=== PATIENT | female | born 1975 | race Two or more races ===

== ENCOUNTER 2016-12-10 14:57 | Emergency (ER) | payer OTHER ==
[~2016-12-10] VITALS: Ht 157.5 cm; Wt 135.0 kg
[2016-12-10 16:58] LABS: BASO % 0.6 % (0.0-1.0); LARGE UNSTAINED CELL # 0.1 K/mm3 (0.0-0.4); LARGE UNSTAINED CELL % 2.1 % (0.0-4.0); LYMPH # 1.8 K/mm3 (1.5-4.5); LYMPH % 35.7 % (24.0-44.0); MEAN CORPUSCULAR HEMOGLOBIN 24.5 pg (27.0-33.0); MEAN CORPUSCULAR HGB CONC 31.3 g/dl (32.0-36.5); MEAN CORPUSCULAR VOLUME 78.2 fl (80.0-96.0); MONO # 0.2 K/mm3 (0.0-0.8); MONO % 4.7 % (0.0-5.0); NEUTROPHILS # 2.7 K/mm3 (1.8-7.7); NEUTROPHILS % 55.9 % (36.0-66.0); PLATELET COUNT, AUTOMATED 443 k/mm3 (150-450); RED CELL DISTRIBUTION WIDTH 17.5 % (11.5-14.5); WHITE BLOOD COUNT 4.9 K/mm3 (4.0-10.0)
--- NOTE | 2016-12-10 17:52 | REP ---
Pelvic sonography: History: Dysfunctional uterine bleeding. Findings: Transabdominal and transvaginal scanning are performed. Uterine dimensions are normal 8.8 x 3.8 x 4.8 cm. Endometrial echo 0.4 cm thick. There is a large heterogeneously solid avascular lesion dilating the cervical canal and measuring 3.1 x 1.3 x 2.3 cm. This is consistent with an endocervical thrombus or polyp. No focal uterine mass seen. No free fluid is seen. Normal ovaries are seen bilaterally. The right ovary measures 2.8 x 1.8 x 2.1 cm. Left ovary dimensions are 2.5 x 1.2 x 2.3 cm. Impression: 3.1 x 1.3 x 2.3 cm avascular echogenic structure dilating the endocervical canal, thrombus versus less likely polyp. Otherwise negative pelvic sonography. Signed by Connor Renee MD 12/11/2016 08:32 A
[2016-12-10] MEDS ORDERED: LOES1TAB9 PO (18:10)
[2016-12-10 18:18] VITALS: BP 124/87
== END 2016-12-10 18:35 | disposition home or self-care (01) ==
LOC: M ED 14:57
DX: N93.8 Other specified abnormal uterine and vaginal bleeding (principal); N88.8 Other specified noninflammatory disorders of cervix uteri; D64.9 Anemia, unspecified; Z79.899 Other long term (current) drug therapy

== ENCOUNTER → 2018-07-13 | Outpatient (REF) | payer OTHER ==
[~2018-07-13] MED LIST: LOES1TAB9 PO
[2018-07-15 14:18] LABS: HPV HYBRID CAPTURE II Negative (Negative)
== END ==
LOC: M LAB REF 17:16
PROVIDERS: ATTEND Advanced Practice Midwife
DX: Z12.4 Encounter for screening for malignant neoplasm of cervix (principal)
CPT/HCPCS: 87624; G0123

== ENCOUNTER → 2018-07-27 | Outpatient (CLI) | payer OTHER ==
[2018-07-27 18:24] LABS: BASO % 0.2 % (0.0-1.0); EOS # 0.2 10^3/uL (0.0-0.50); EOS % 2.9 % (0.0-3.0); HEMOGLOBIN 11.9 g/dl (12.0-15.5); LYMPH # 1.8 10^3/uL (1.5-4.5); LYMPH % 33.6 % (24.0-44.0); MEAN CORPUSCULAR HEMOGLOBIN 30.1 pg (27.0-33.0); MEAN CORPUSCULAR HGB CONC 33.1 g/dl (32.0-36.5); MEAN CORPUSCULAR VOLUME 90.9 fl (80.0-96.0); MONO # 0.3 10^3/uL (0.0-0.8); MONO % 5.8 % (0.0-5.0); NEUTROPHILS % 57.3 % (36.0-66.0); PLATELET COUNT, AUTOMATED 325 10^3/uL (150-450); RED BLOOD COUNT 3.96 10^6/uL (4.00-5.40); WHITE BLOOD COUNT 5.2 10^3/uL (4.0-10.0)
[2018-07-27 18:43] LABS: FOLLICLE STIMULATING HORMONE 110.1 mIU/mL; FREE T4 0.98 NG/DL (0.76-1.46); LUTEINIZING HORMONE 43.5 mIU/mL; THYROID STIMULATING HORMONE 1.06 uIU/ML (0.358-3.740)
== END ==
LOC: M SMT 13:44
PROVIDERS: ATTEND Advanced Practice Midwife
DX: N92.0 Excessive and frequent menstruation with regular cycle (principal)

== ENCOUNTER → 2018-08-01 | Outpatient (CLI) | payer OTHER ==
--- NOTE | 2018-08-01 17:08 | REP ---
Pelvic ultrasound including transabdominal and endovaginal and comparison is 12/10/2016. The uterus is anteverted and normal size measuring 6.7 x 3.6 x 4.4 cm. The endometrium is not thickened measuring 3.1 mm. There is a focal zone of heterogeneity in the anterior myometrium measuring 2.6 x 1.8, 7 meters, likely a poorly encapsulated fibroid.. It extends from the serosal surface to the mucosal surface. The right ovary measures 2.0 1.6 x 1.7 cm. Left ovary measures 1.6 x 7.5 x 2.0 cm. There are no dominant ovarian masses or cysts. No free fluid.. Impression: Focal zone of heterogeneity in the anterior myometrium as described, likely a poorly encapsulated fibroid. Electronically Signed by Leonardo Graham MD 08/01/2018 04:59 P
--- NOTE | 2018-08-02 09:49 | REPMRS ---
Patient History The patient states she has not had a clinical breast exam in over a year. No known family history of cancer. denied.2D only- Digital Mammo Screening Bilat: August 01, 2018 - Exam #: [id number] Bilateral CC and MLO view(s) were taken. Technologist: Huyen Wells, Technologist No prior studies available for comparison. FINDINGS: There are scattered fibroglandular densities. There is no evidence of dominant mass, architectural distortion, or clustered microcalcification typical of malignancy. Assessment: BI-RADS/ACR category 1 mammogram. Negative Mammogram. Recommendation Routine screening mammogram of both breasts in 1 year (for women over age 40). This patient's Lifetime Breast Cancer RIsk is estimated at 8.6 %. This mammogram was interpreted with the aid of an FDA-approved computer-aided dectection system. Electronically Signed By: Rivera Renee MD 08/01/18 [id number]
== END ==
LOC: M RAD 15:42
PROVIDERS: ATTEND Advanced Practice Midwife
DX: Z12.31 Encounter for screening mammogram for malignant neoplasm of breast (principal)